=== PATIENT | male | born 1945 | race Caucasian/White ===

== ENCOUNTER 2018-11-05 10:34 | Inpatient (IN) | payer MEDICARE ==
[~2018-11-05] VITALS: Ht 175.3 cm; Wt 65.8 kg
[~2018-11-05 10:34] MED LIST: COREG6.25 MG PO; FLOMAX0.4 MG PO; LANTUS SOL100 UNIT/1 SC; NITROSTAT0.4 MG SL; PEPCID20 MG PO; PLAVIX75 MG PO; PRINIVIL20 MG PO; ZOCOR80 MG PO
[2018-11-05] MEDS ORDERED: CHEMO (11:14)
[2018-11-05 11:38] LABS: BASOPHILS 0 % (0-2); EOSINOPHILS 0.1 % (0-7); HEMATOCRIT 30.5 % (42.0-54.0); HEMOGLOBIN 10.6 g/dL (13.5-17.5); IMMATURE GRANULOCYTES 0.5 % (0-5); LYMPHOCYTES 10.7 % (15-50); MCH 32.6 pg (26.0-34.0); MCHC 34.8 g/dL (31.0-37.0); MCV 93.8 fL (80.0-100.0); MONOCYTES 0.7 % (2-11); RBC 3.25 10x6/uL (4.20-6.10); RDW 14.3 % (11.5-14.5); WBC 10.5 10x3/uL (4.8-10.8)
[2018-11-05 11:39] LABS: PLATELET COUNT 90 10x3/uL (130-400)
[2018-11-05 11:53] LABS: ALBUMIN 2.8 g/dL (3.4-5.0); ANION GAP 13.2 mmol/L (8-16); BILIRUBIN - TOTAL 1.14 mg/dL (0.2-1.3); CALCIUM 8.7 mg/dL (8.5-10.1); CARBON DIOXIDE 25.2 mmol/L (21.0-32.0); CREATININE - SERUM 1.9 mg/dL (0.6-1.3); POTASSIUM - SERUM 5.4 mmol/L (3.5-5.1); PROTEIN - SERUM 7.8 g/dL (6.4-8.2)
[2018-11-05 12:38] LABS: PLATELET ESTIMATE DECREASED
--- NOTE | 2018-11-05 13:17 | NUR ---
POSITIVE FLU B RESULT CALLED FROM LAB - ER PROVIDER NOTIFIED.
[2018-11-05 13:20] LABS: APPEARANCE CLOUDY (CLEAR); BILIRUBIN NEGATIVE (NEGATIVE); COLOR YELLOW (YELLOW); GLUCOSE 1000 mg/dL (NEGATIVE); KETONE NEGATIVE (NEGATIVE); NITRITE NEGATIVE (NEGATIVE); PROTEIN 3+ mg/dL (NEGATIVE); SPECIFIC GRAVITY 1.015 (1.005-1.020)
[2018-11-05 13:21] LABS: BACTERIA MODERATE /hpf (NONE SEEN); EPITHELIAL CELLS 0-5 /hpf (0-5); MUCUS <1+ /lpf (NONE SEEN); WHITE CELLS - URINE 25-50 /hpf (0-5)
--- NOTE | 2018-11-05 13:50 | NUR ---
PT RECEIVED FROM ER VIA STRETCHER WITH SPOUSE TO ROOM 3326. ALERT AND ORIENTED. NO ACUTE DISTRESS NOTED. IV TO RIGHT HAND WITH NS BOLUS INFUSING AT THIS TIME. EDUCATED PT AND FAMILY REGAURDING ISOLATION PROTOCOL FOR DROPLET ISOLATION. ORIENTED TO BED CONTROLS, CALL LIGHT AND ROOM. DENIES FURTHER QUESTIONS AT THIS TIME. CL WITHIN REACH. ENCOURAGED TO CALL WITH NEEDS.
--- NOTE | 2018-11-05 13:59 | MORECARE ---
CASE MANAGEMENT DISCHARGE SUMMARY PATIENT: MARLON MONTAÑO UNIT: [id number] ADM DATE: 11/05/18 AGE: 73 : 46 SEX: M ROOM/BED: D.2219 AUTHOR: AUDRADOC PHYSICIAN: REFERRING PHYSICIAN: FLORENCIO MOON MD DATE OF SERVICE: 11/05/18 Discharge Plan Patient Name: MARLON MONTAÑO Facility: [facility]:[place] : 1945 Planned Disposition: Home Anticipated Discharge Date: 11/08/18 Discharge Date: Expected LOS: 3 Initial Reviewer: [email or web address] Initial Review Date: 11/05/2018 Generated: 11/05/18 2:59 pm DCP- Discharge Planning Updated by [email or web address]: Neyda Rai on 11/05/18 12:[address] Patient Name: MARLON MONTAÑO Admission Status: ER Accout number: [id number] Admission Date: 11-05-2018 : 1945 Admission Diagnosis: Attending: FLORENCIO MOON Current LOS: 1 Anticipated DC Date: 11-08-2018 Planned Disposition: Home Primary Insurance: AETNA MEDICARE PPO or HMO Discharge Planning Comments: CM met with patient and his to complete initial dc planning assessment. CM educated patient on the CM role and verbal consent given by patient to complete assessment. Patient lives at home with his . He requires assistance with all his ADL's and IADL's. At discharge patient plans to return home with his and feels this is a safe discharge. CM discussed availability of home health, rehab services, and medical equipment. Patient currently has [facility]. Once the patient get well and stronger they are going to move back to [place] where they can be closer to his son. Patient and his denied known discharge needs at this time. CM will continue to follow and will assist as needed with dc plans/needs. General Doc: Neyda Rai RN, [facility] DCPIA - Discharge Planning Initial Assessment Updated by [email or web address]: Neyda Rai on 11/05/18 1:53 pm * Is the patient Alert and Oriented? Yes * How many steps to enter\exit or inside your home? Ramp * PCP Dr. Patterson * Pharmacy [facility] [address] * Preadmission Environment Home with Family * ADLs Partial Dependent * Partial ADLs (Assistance needed) Ambulation Bathing Dressing Medication Management Transfers * Equipment Cane Glucometer Wheelchair * List name and contact numbers for known caregivers / representatives who currently or will assist patient after discharge: Darleen Montaño - - [phone] * Verbal permission to speak to the caregivers and representatives has been obtained from the patient. Yes * Community resources currently utilized Home Health * Please name any agencies selected above. [facility] * Additional services required to return to the preadmission environment? No * Can the patient safely return to the preadmission environment? Yes * Has this patient been hospitalized within the prior 30 days at any hospital? Yes Patient Name: MARLON MONTAÑO Page [id number] at 1359 All edits/amendments must be made on the electronic document DICTATION DATE: 11/05/181357 COMMERCIAL BAKING TEACHER: WANDA 11/05/18 1358 RPT#: [id number] DC DATE: STATUS: ADM IN [facility] [address] [place] [address] END OF REPORT
--- NOTE | 2018-11-05 14:37 | MORECARE ---
CASE MANAGEMENT DISCHARGE SUMMARY PATIENT: MARLON MONTAÑO UNIT: [id number] ADM DATE: 11/05/18 AGE: 73 : 46 SEX: M ROOM/BED: D.2219 AUTHOR: AUDRA,DOC PHYSICIAN: REFERRING PHYSICIAN: FLORENCIO MOON MD DATE OF SERVICE: 11/05/18 Discharge Plan Patient Name: MARLON MONTAÑO Facility: [facility]:[place] : 1945 Planned Disposition: Home Anticipated Discharge Date: 11/08/18 Discharge Date: Expected LOS: 3 Initial Reviewer: [email or web address] Initial Review Date: 11/05/2018 Generated: 11/05/18 3:36 pm DCP- Discharge Planning Updated by [email or web address]: Latrice Person on 11/05/18 1:[address] STEW MONTAÑO (SON [phone]) CALLED, AFTER PERMISSION GIVEN TO ME BY THE PATIENT, STEW QUESTIONED HIS DAD CONDITION AND ASKED ABOUT TRANSFERING TO [place] TO HIS DOCTORS. THE PATIENT IS SEEING DR WINSTON AND DR ALEJANDRO IN [place] AT [facility] THE PATIENT HAD HIS NEPHROSTOMY TUBE REMOVED TO HIS LEFT KIDNEY ON 11/03 AND HIS LAST CHEMO TREATMENT WAS ON 11/01 HE WAS SUPPOSE TO HAVE A CT SCAN TODAY AND A DR APPOINTMENT WITH DR WINSTON TODAY, BUT DIDN'T MAKE IT THERE BECAUSE HE IS ADMITTED TO THE HOSPITAL. HIS SON SAID HE WAS TO FLY OUT TO [place] ON THE OF THIS MONTH SO HE CAN TAKE BETTER CARE OF HIS DAD. I HAVE UPDATED RX SPECIALIST ABOUT ALL THE ABOVE. CM WILL CONTINUE TO FOLLOW AND ASSIST WITH DC PLANNING NEEDED DCP- Discharge Planning Updated by [email or web address]: Neyda Rai on 11/05/18 12:[address] Patient Name: MARLON MONTAÑO Admission Status: ER Accout number: [id number] Admission Date: 11-05-2018 : 1945 Admission Diagnosis: Attending: FLORENCIO MOON Current LOS: 1 Anticipated DC Date: 11-08-2018 Planned Disposition: Home Primary Insurance: AETNA MEDICARE PPO or HMO Discharge Planning Comments: CM met with patient and his to complete initial dc planning assessment. CM educated patient on the CM role and verbal consent given by patient to complete assessment. Patient lives at home with his . He requires assistance with all his ADL's and IADL's. At discharge patient plans to return home with his and feels this is a safe discharge. CM discussed availability of home health, rehab services, and medical equipment. Patient currently has [facility]. Once the patient get well and stronger they are going to move back to [place] where they can be closer to his son. Patient and his denied known discharge needs at this time. CM will continue to follow and will assist as needed with dc plans/needs. Applications Systems Engineer: Neyda Rai RN, [facility] DCPIA - Discharge Planning Initial Assessment Updated by [email or web address]: Neyda Rai on 11/05/18 1:53 pm * Is the patient Alert and Oriented? Yes * How many steps to enter\exit or inside your home? Ramp * PCP Dr. Patterson * Pharmacy [facility] on [address] * Preadmission Environment Home with Family * ADLs Partial Dependent * Partial ADLs (Assistance needed) Ambulation Bathing Dressing Medication Management Transfers * Equipment Cane Glucometer Wheelchair * List name and contact numbers for known caregivers / representatives who currently or will assist patient after discharge: Darleen Montaño - - [phone] * Verbal permission to speak to the caregivers and representatives has been obtained from the patient. Yes * Community resources currently utilized Home Health * Please name any agencies selected above. [facility] * Additional services required to return to the preadmission environment? No * Can the patient safely return to the preadmission environment? Yes * Has this patient been hospitalized within the prior 30 days at any hospital? Yes Last DP export: 11/05/18 12:59 p Patient Name: MARLON MONTAÑO Page [id number] at 1437 All edits/amendments must be made on the electronic document DICTATION DATE: 11/05/181435 BILLIARD PARLOR MANAGER: WANDA 11/05/181435 RPT#: [id number] AL DATE: STATUS: ADM IN [facility] [address] [place] [address] END OF REPORT
[2018-11-05 15:57] LABS: % SATURATION 43 % (15-55); IRON 92 ug/dl (35-150); TOTAL IRON BIND CAPACITY 211 ug/dl (260-445); UNSAT IRON BIND CAPACITY 119 ug/dl (150-375)
[2018-11-05 18:51] VITALS: BP 138/72; BMI 21.4
--- NOTE | 2018-11-05 19:00 | NUR ---
REPORT RECEIVED AND CARE OF PT ASSUMED. PT LYING IN LOW LUND'S POSITION VISITING WITH FAMILY MEMBERS. DROPLET ISOLATION IN PLACE. IV IN RIGHT HAND PATENT WITH NS INFUSING AT 125 ML/HR. TELEMETRY IN PLACE AND READING 71 SR AT THIS ASSESSMENT. WILL MONITOR FOR NEEDS.
--- NOTE | 2018-11-05 20:26 | NUR ---
HS MEDICATIONS GIVEN. FSBS 283 THIS CHECK REQUIRING COVERAGE WITH 10 UNITS OF INSULIN PER SLIDING SCALE.
[2018-11-05 20:53] VITALS: BP 157/68
[2018-11-06 01:19] VITALS: BP 169/80
[2018-11-06 05:27] VITALS: BP 178/75
[2018-11-06 05:47] LABS: BASOPHILS 0.2 % (0-2); EOSINOPHILS 0 % (0-7); HEMATOCRIT 25.4 % (42.0-54.0); HEMOGLOBIN 8.7 g/dL (13.5-17.5); IMMATURE GRANULOCYTES 0.2 % (0-5); LYMPHOCYTES 14.6 % (15-50); MCH 31.9 pg (26.0-34.0); MCHC 34.3 g/dL (31.0-37.0); MEAN PLATELET VOLUME 10.7 fL (7.4-10.4); MONOCYTES 2.3 % (2-11); NEUTROPHILS 82.7 % (40-80); RBC 2.73 10x6/uL (4.20-6.10); RDW 14.2 % (11.5-14.5)
[2018-11-06 05:49] LABS: PLATELET COUNT 64 10x3/uL (130-400); WBC 4.4 10x3/uL (4.8-10.8)
[2018-11-06 06:12] LABS: ALBUMIN 2.1 g/dL (3.4-5.0); BILIRUBIN - TOTAL 0.33 mg/dL (0.2-1.3); CALCIUM 7.7 mg/dL (8.5-10.1); CARBON DIOXIDE 23.3 mmol/L (21.0-32.0); CREATININE - SERUM 1.5 mg/dL (0.6-1.3); PROTEIN - SERUM 6.3 g/dL (6.4-8.2)
[2018-11-06 06:16] LABS: POTASSIUM - SERUM 4.3 mmol/L (3.5-5.1)
--- NOTE | 2018-11-06 07:51 | NUR ---
PATIENT ALERT AND ORIENTED. LUNGS CLEAR BILATERALLY. HEART SOUNDS HEARD IN ALL LEON. BOWEL SOUNDS ACTIVE. IV TO RIGHT HAND PATENT. DENIES NEEDS. WILL CONTINUE TO MONITOR.
--- NOTE | 2018-11-06 08:26 | NUR ---
MEDICATIONS GIVEN WITHOUT DIFFICULTY. DENIES NEEDS AT THIS TIME. WILL CONTINUE TO MONITOR.
--- NOTE | 2018-11-06 08:27 | NUR ---
EDUCATED ON NEED FOR STOOL SAMPLE. GIVEN MIRALAX IN LABELED CUP. VERBALIZED UNDERSTANDING.
[2018-11-06 09:19] VITALS: BP 148/54
--- NOTE | 2018-11-06 10:02 | NUR ---
NEW BAG OF FLUIDS HUNG. NEW ORDERS FROM PT PATIENT UP WITH ASSIST TO BATHROOM. UP TO SIDE OF BED FOR MEALS. PATIENT DENIES NEEDS AT THIS TIME. WILL CONTINUE TO MONITOR.
[2018-11-06 10:47] VITALS: Ht 175.3 cm; Wt 65.8 kg
--- NOTE | 2018-11-06 11:00 | NUR ---
PATIENT EDUCATED ON NEED FOR URINE SAMPLE. CLEAN URINAL PLACED AT BEDSIDE. EDUCATED TO CALL IMMEDIATELY AFTER URINATION. DENIES NEEDS AT THIS TIME.
--- NOTE | 2018-11-06 11:15 | NUR ---
PATIENT BLOOD SUGAR 230. GIVEN 8UNITS HUMULIN PER SLIDING SCALE. WILL CONTINUE TO MONITOR.
[2018-11-06] MEDS ORDERED: TAMIFLU75 MG PO (13:02)
[2018-11-06] MEDS ORDERED: LEVOFLOXACIN500 MG PO (13:03)
--- NOTE | 2018-11-06 14:54 | NUR ---
PATIENT DISCHARGED HOME WITH PER REQUEST. IV TO RIGHT HAND REMOVED WITH CATHETER TIP INTACT. MDOERATE AMOUNT OF BLEEDING. PRESSURE APPLIED FOR SEVERAL MINUTES. EDUCATION PROVIDED TO HOLD PRESSURE IF BLEEDING OCCURS. TELEMETRY REMOVED. DISCHARGE EDUCATION PROVIDED WRITTEN AND VERBAL. PATIENT VERBALIZED UNDERSTANDING. PATIENT TAKEN TO CAR BY LILIAM.
--- NOTE | 2018-11-07 18:56 | MORECARE ---
CASE MANAGEMENT DISCHARGE SUMMARY PATIENT: MARLON MONTAÑO UNIT: [id number] ADM DATE: 11/05/18 AGE: 73 : 46 SEX: M ROOM/BED: D.2219 AUTHOR: AUDRADOC PHYSICIAN: REFERRING PHYSICIAN: FLORENCIO MOON MD DATE OF SERVICE: 11/07/18 Discharge Plan Patient Name: MARLON MONTAÑO Facility: [facility]:[place] : 1945 Planned Disposition: Home Anticipated Discharge Date: 11/08/18 Discharge Date: 11/06/2018 Expected LOS: 3 Initial Reviewer: [email or web address] Initial Review Date: 11/05/2018 Generated: 11/07/18 7:56 pm DCP- Discharge Planning Updated by [email or web address]: Latrice Person on 11/05/18 1:[address] STEW MONTAÑO (SON [phone]) CALLED, AFTER PERMISSION GIVEN TO ME BY THE PATIENT, STEW QUESTIONED HIS DAD CONDITION AND ASKED ABOUT TRANSFERING TO [place] TO HIS DOCTORS. THE PATIENT IS SEEING DR WINSTON AND DR ALEJANDRO IN [place] AT [facility] [place] THE PATIENT HAD HIS NEPHROSTOMY TUBE REMOVED TO HIS LEFT KIDNEY ON 11/03 AND HIS LAST CHEMO TREATMENT WAS ON 11/01 HE WAS SUPPOSE TO HAVE A CT SCAN TODAY AND A DR APPOINTMENT WITH DR WINSTON TODAY, BUT DIDN'T MAKE IT THERE BECAUSE HE IS ADMITTED TO THE HOSPITAL. HIS SON SAID HE WAS TO FLY OUT TO [place] ON THE OF THIS MONTH SO HE CAN TAKE BETTER CARE OF HIS DAD. I HAVE UPDATED SOW FARM MANAGER ABOUT ALL THE ABOVE. CM WILL CONTINUE TO FOLLOW AND ASSIST WITH DC PLANNING NEEDED DCP- Discharge Planning Updated by [email or web address]: Neyda Rai on 11/05/18 12:[address] Patient Name: MARLON MONTAÑO Admission Status: ER Accout number: [id number] Admission Date: 11-05-2018 : 1945 Admission Diagnosis: Attending: FLORENCIO MOON Current LOS: 1 Anticipated DC Date: 11-08-2018 Planned Disposition: Home Primary Insurance: AETNA MEDICARE PPO or HMO Discharge Planning Comments: CM met with patient and his to complete initial dc planning assessment. CM educated patient on the CM role and verbal consent given by patient to complete assessment. Patient lives at home with his . He requires assistance with all his ADL's and IADL's. At discharge patient plans to return home with his and feels this is a safe discharge. CM discussed availability of home health, rehab services, and medical equipment. Patient currently has [facility]. Once the patient get well and stronger they are going to move back to [place] where they can be closer to his son. Patient and his denied known discharge needs at this time. CM will continue to follow and will assist as needed with dc plans/needs. Pipe Coverer And Insulator: Neyda Rai RN, [facility] DCPIA - Discharge Planning Initial Assessment Updated by [email or web address]: Neyda Rai on 11/05/18 1:53 pm * Is the patient Alert and Oriented? Yes * How many steps to enter\exit or inside your home? Ramp * PCP Dr. Patterson * Pharmacy [facility] on [address] * Preadmission Environment Home with Family * ADLs Partial Dependent * Partial ADLs (Assistance needed) Ambulation Bathing Dressing Medication Management Transfers * Equipment Cane Glucometer Wheelchair * List name and contact numbers for known caregivers / representatives who currently or will assist patient after discharge: Darleen Montaño - - [phone] * Verbal permission to speak to the caregivers and representatives has been obtained from the patient. Yes * Community resources currently utilized Home Health * Please name any agencies selected above. [facility] * Additional services required to return to the preadmission environment? No * Can the patient safely return to the preadmission environment? Yes * Has this patient been hospitalized within the prior 30 days at any hospital? Yes Last DP export: 11/05/18 1:36 p Patient Name: MARLON MONTAÑO Page 12907 at 1856 All edits/amendments must be made on the electronic document DICTATION DATE: 11/07/181854 FINISH PHOTOGRAPHER: WANDA 11/07/181854 RPT#: [id number] DC DATE:11/06/18 STATUS: DIS IN [facility] [address] [place] [address] END OF REPORT
--- NOTE | 2018-11-07 19:02 | MORECARE ---
CASE MANAGEMENT DISCHARGE SUMMARY PATIENT: MARLON MONTAÑO UNIT: [id number] ADM DATE: 11/05/18 AGE: 73 : 46 SEX: M ROOM/BED: D.2219 AUTHOR: AUDRA,DOC PHYSICIAN: REFERRING PHYSICIAN: FLORENCIO MOON MD DATE OF SERVICE: 11/07/18 Discharge Plan Patient Name: MARLON MONTAÑO Facility: [facility]:[place] : 1945 Planned Disposition: Home Anticipated Discharge Date: 11/08/18 Discharge Date: 11/06/2018 Expected LOS: 3 Initial Reviewer: [email or web address] Initial Review Date: 11/05/2018 Generated: 11/07/18 8:02 pm Comments DCP- Discharge Planning Updated by [email or web address]: Radha Marin on 11/07/18 5:[address] PATIENT DISCHARGED TO HOME THURSDAY. TELEPHONE CALL TO [facility] THIS PM. SPOKE WITH KRYSTIAN. FAXED H/P, DISCHARGE SUMMARY, DISCHARGE MED LIST AND LABS TO [phone]. PHONE NUMBER [phone]. DCP- Discharge Planning Updated by [id number]: Latrice Person on 11/05/18 1:[address] STEW MONTAÑO (SON [phone]) CALLED, AFTER PERMISSION GIVEN TO ME BY THE PATIENT, STEW QUESTIONED HIS DAD CONDITION AND ASKED ABOUT TRANSFERING TO [place] TO HIS DOCTORS. THE PATIENT IS SEEING DR WINSTON AND DR ALEJANDRO IN [place] AT [facility] THE PATIENT HAD HIS NEPHROSTOMY TUBE REMOVED TO HIS LEFT KIDNEY ON 11/03 AND HIS LAST CHEMO TREATMENT WAS ON 11/01 HE WAS SUPPOSE TO HAVE A CT SCAN TODAY AND A DR APPOINTMENT WITH DR WINSTON TODAY, BUT DIDN'T MAKE IT THERE BECAUSE HE IS ADMITTED TO THE HOSPITAL. HIS SON SAID HE WAS TO FLY OUT TO [place] ON THE OF THIS MONTH SO HE CAN TAKE BETTER CARE OF HIS DAD. I HAVE UPDATED BASE WAD OPERATOR ADJUSTER ABOUT ALL THE ABOVE. CM WILL CONTINUE TO FOLLOW AND ASSIST WITH DC PLANNING NEEDED DCP- Discharge Planning Updated by [email or web address]: Neyda Rai on 11/05/18 12:[address] Patient Name: MARLON MONTAÑO Admission Status: ER Accout number: [id number] Admission Date: 11-05-2018 : 1945 Admission Diagnosis: Attending: FLORENCIO MOON Current LOS: 1 Anticipated DC Date: 11-08-2018 Planned Disposition: Home Primary Insurance: AETNA MEDICARE PPO or HMO Discharge Planning Comments: CM met with patient and his to complete initial dc planning assessment. CM educated patient on the CM role and verbal consent given by patient to complete assessment. Patient lives at home with his . He requires assistance with all his ADL's and IADL's. At discharge patient plans to return home with his and feels this is a safe discharge. CM discussed availability of home health, rehab services, and medical equipment. Patient currently has [facility]. Once the patient get well and stronger they are going to move back to [place] where they can be closer to his son. Patient and his denied known discharge needs at this time. CM will continue to follow and will assist as needed with dc plans/needs. Accountant Machine Processing: Neyda Rai RN, [facility] DCPIA - Discharge Planning Initial Assessment Updated by [email or web address]: Neyda Rai on 11/05/18 1:53 pm * Is the patient Alert and Oriented? Yes * How many steps to enter\exit or inside your home? Ramp * PCP Dr. Patterson * Pharmacy [facility] on [address] * Preadmission Environment Home with Family * ADLs Partial Dependent * Partial ADLs (Assistance needed) Ambulation Bathing Dressing Medication Management Transfers * Equipment Cane Glucometer Wheelchair * List name and contact numbers for known caregivers / representatives who currently or will assist patient after discharge: Darleen Montaño - - [phone] * Verbal permission to speak to the caregivers and representatives has been obtained from the patient. Yes * Community resources currently utilized Home Health * Please name any agencies selected above. [facility] * Additional services required to return to the preadmission environment? No * Can the patient safely return to the preadmission environment? Yes * Has this patient been hospitalized within the prior 30 days at any hospital? Yes Last DP export: 11/07/18 5:56 p Patient Name: MARLON MONTAÑO Page 13728 at 1902 All edits/amendments must be made on the electronic document DICTATION DATE: 11/07/181901 WOOD LAST MAKER: WANDA 11/07/181901 RPT#: [id number] DC DATE:11/06/18 STATUS: DIS [facility] [address] [place] [address] END OF REPORT
== END 2018-11-06 14:57 | disposition home or self-care (01) | DRG 153 ==
LOC: D.ER 10:34 → D.MS 13:03
PROVIDERS: Family Medicine; ADMIT Internal Medicine Nephrology; ATTEND Internal Medicine Nephrology
DX: J11.1 Influenza due to unidentified influenza virus with other respiratory manifestations (principal); E87.1 Hypo-osmolality and hyponatremia; N39.0 Urinary tract infection, site not specified; N17.9 Acute kidney failure, unspecified; C67.9 Malignant neoplasm of bladder, unspecified; E11.65 Type 2 diabetes mellitus with hyperglycemia; I10 Essential (primary) hypertension